=== PATIENT | female | born 1995 | race Two or more races ===

== ENCOUNTER 2016-10-31 16:42 | Emergency (ER) | payer OTHER ==
[2016-10-31 16:54] VITALS: BP 111/86; PULSE 93; RESP 17; TEMP 98.1; O2SAT 99
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
== END 2016-10-31 17:28 | disposition home or self-care (01) ==
DX: S70.02XA Contusion of left hip, initial encounter (principal); V03.10XA Pedestrian on foot injured in collision with car, pick-up truck or van in traffic accident, initial encounter